=== PATIENT | female | born 1940 | race Caucasian/White ===

== ENCOUNTER → 2017-04-09 13:15 | Outpatient (CLI) | payer MEDICARE, OTHER | END | disposition home or self-care (01) | LOC: D.MAMMO 13:15 → D.RAD 13:15 → D.MAMMO 15:45 | DX: S39.012A Strain of muscle, fascia and tendon of lower back, initial encounter (principal); X58.XXXA Exposure to other specified factors, initial encounter; Y93.89 Activity, other specified; Y92.89 Other specified places as the place of occurrence of the external cause ==

== ENCOUNTER → 2017-05-07 16:31 | Outpatient (CLI) | payer MEDICARE, OTHER | END | disposition home or self-care (01) | LOC: D.MAMMO 10:30 | DX: R92.8 Other abnormal and inconclusive findings on diagnostic imaging of breast (principal) ==

== ENCOUNTER → 2017-10-24 19:40 | Outpatient (CLI) | payer MEDICARE, OTHER | END | disposition home or self-care (01) | LOC: D.MAMMO 10-21 13:00 | DX: R92.8 Other abnormal and inconclusive findings on diagnostic imaging of breast (principal) ==

== ENCOUNTER → 2017-10-30 10:49 | Outpatient (CLI) | payer MEDICARE, OTHER | END | disposition home or self-care (01) | LOC: D.US 10-24 10:30 | DX: R92.8 Other abnormal and inconclusive findings on diagnostic imaging of breast (principal) ==

== ENCOUNTER 2018-06-19 19:00 | Outpatient (CLI) | payer MEDICARE, OTHER | END 2018-06-19 23:59 | disposition home or self-care (01) | LOC: D.MAMMO 19:00 | DX: R92.8 Other abnormal and inconclusive findings on diagnostic imaging of breast (principal) ==